=== PATIENT | female | born 1985 | race African-American/Black ===

== ENCOUNTER 2018-12-15 18:50 | Emergency (ER) | payer SELFPAY ==
[~2018-12-15] VITALS: Ht 170.2 cm; Wt 52.2 kg
[2018-12-15] MEDS ORDERED: ONDANSETRON PF 4 MG/2 ML VIAL. IV ONE ×2 (20:00→20:30)
[2018-12-15] MEDS ORDERED: FAMOTIDINE 20 MG/2 ML VIAL IVP ONE (20:00)
[2018-12-15 20:02] LABS: BASO % 0 % (0-3); EOS % 0 % (0-3); HEMATOCRIT 44.8 % (36.0-47.0); HEMOGLOBIN 15.1 g/dL (12.0-15.5); LYMPH # 0.7 x10^3/uL (1.0-4.8); LYMPH % 4 % (24-48); MEAN CORPUSCULAR HEMOGLOBIN 31 pg (25-35); MEAN CORPUSCULAR HGB CONC 34 g/dL (31-37); MEAN CORPUSCULAR VOLUME 91 fL (79-100); MONO # 0.4 x10^3/uL (0.0-1.1); MONO % 2 % (0-9); NEUT # 17.9 x10^3uL (1.8-7.7); NEUT % 94 % (31-73); PLATELET COUNT 284 x10^3/uL (140-400); RED CELL DISTRIBUTION WIDTH 13.3 % (11.5-14.5); WHITE BLOOD COUNT 19.1 x10^3/uL (4.0-11.0)
[2018-12-15 20:12] LABS: CALCIUM 9.8 mg/dL (8.5-10.1); CREATININE 1.2 mg/dL (0.6-1.0); POTASSIUM 3.5 mmol/L (3.5-5.1)
[2018-12-15] MEDS ORDERED: IV NORMAL SALINE 1000ML BAG 1,000 ML IV ONE ×2 (20:15→22:30)
[2018-12-15 20:19] LABS: ALBUMIN 4.5 g/dL (3.4-5.0); ALBUMIN/GLOBULIN RATIO 1.3 (1.0-1.7); TOTAL BILIRUBIN 1.4 mg/dL (0.2-1.0); TOTAL PROTEIN 8.1 g/dL (6.4-8.2)
[2018-12-15 20:29] LABS: % LYMPHS 1 % (24-48); % MONOS 1 % (0-10); % SEGS 98 % (35-66)
[2018-12-15 20:30] LABS: PLT ESTIMATE ADEQUATE (ADEQUATE); TOXIC GRANULATION SLIGHT
[2018-12-15] MEDS ORDERED: fentaNYL PF VIAL 100 MCG/2 ML VIAL IV ONE ×2 (20:30→22:30)
[2018-12-15] MEDS ORDERED: LIDO:MAALOX 1:1 20 ML SINGLE DOSE. SWSW ONE (20:30)
--- NOTE | 2018-12-15 21:49 | RAD ---
EXAM: Abdomen acute complete. HISTORY: Vomiting. COMPARISON: None. FINDINGS: A frontal view of the chest and frontal upright and supine views of the abdomen are obtained. There is no infiltrate, pleural effusion or pneumothorax. The heart is normal in size. There are circumscribed nodules overlying both mid and lower lungs due to nipple shadows. There is also a small nodule overlying the left upper lobe. There is a nonobstructive bowel gas pattern. There is no free air. IMPRESSION: 1. Nonobstructive bowel gas pattern. 2. Small nodule overlying the left upper lobe, possibly due to overlying artifact. Short-term radiographic follow-up can be performed to exclude a noncalcified nodule in this location. Electronically signed by: Ayla Duran MD (12/15/2018 9:46 PM) [facility]
--- NOTE | 2018-12-15 22:02 | EKG ---
[facility] [address] [place] [address] Test Date: 2018-12-15 Test Time: 19:30:36 Pat Name: FRED PRADO Department: Room: Gender: Female Track Superintendent: : 1985 Requested By: STAFF NON Order Number: [id number] Reading MD: Sharif Hayward Measurements Intervals [place] Rate: 53 P: 64 MO: 102 QRS: 77 QRSD: 90 T: 26 QT: 448 QTc: 426 Interpretive Statements SINUS RHYTHM INCOMPLETE RIGHT BUNDLE BRANCH BLOCK Electronically Signed On 01-12-2019 13:15:31 CDT by Sharif Hayward
--- NOTE | 2018-12-15 22:23 | PHYS DOC ---
Past Medical History Past Medical History: No Pertinent History (DAVID JOHNSON) Past Surgical History: No Surgical History (DAVID JOHNSON) Alcohol Use: Occasionally Drug Use: Marijuana (DAVID JOHNSON) Adult General Chief Complaint Chief Complaint: NAUSEA/VOMITING/DIARRHA HPI HPI Patient is a 33 year old F who was upset about a recent break up so went out with friends last night and drank a lot of alcohol. She states she doesn't normally drink too often so this was out of the ordinary for her and she woke up throwing up early this morning and has been vomiting all day long. She states she felt like she was starting to get dehydrated and her upper abd and chest hurt from so much vomiting. Her friend brings her to ER for fluids and medic ation. (DAVID JOHNSON) Review of Systems Review of Systems Constitutional: Denies fever or chills Respiratory: Denies cough or shortness of breath [] Cardiovascular: Reports chest pain GI: Denies bloody stools or diarrhea. Reports abdominal pain, nausea and vomiting. : Denies dysuria or hematuria [] Musculoskeletal: Denies back pain or joint pain [] Integument: Denies rash or skin lesions [] Neurologic: Denies focal weakness or sensory changes. Reports headache. All other systems were reviewed and found to be within normal limits, except as documented in this note. (DAVID JOHNSON) Current Medications Current Medications Current Medications Medications (Trade) Dose Ordered Sig/Yared Start Time Stop Time Status Last Admin Dose Admin Famotidine (Pepcid Vial) 20 mg 1X ONCE 12/15/18 20:00 12/15/18 20:01 DC 12/15/18 19:57 20 MG Fentanyl Citrate (Fentanyl 2ml Vial) 25 mcg 1X ONCE 12/15/18 22:30 12/15/18 22:31 DC 12/15/18 22:42 25 MCG Multi-Ingredient Mouthwash/Gargle (Gi Cocktail) 20 ml 1X ONCE 12/15/18 20:30 12/15/18 20:31 DC 12/15/18 20:38 20 ML Ondansetron HCl (Zofran) 4 mg 1X ONCE 12/15/18 20:30 12/15/18 20:31 DC 12/15/18 20:38 4 MG Sodium Chloride 1,000 ml @ 1,000 mls/hr 1X ONCE 12/15/18 22:30 12/15/18 23:29 DC 12/15/18 22:41 1,000 MLS/HR (YULIET LOZA DO) Allergies Allergies Allergies Coded Allergies Type Severity Reaction Last Updated Verified No Known Drug Allergies 11/15/15 No (YULIET LOZA DO) Physical Exam Physical Exam Constitutional: Well developed, well nourished, no acute distress, non-toxic appearance. Uncomfortable. HENT: Normocephalic, atraumatic, oropharynx moist. Neck: Normal range of motion, no tenderness, supple, no stridor. [] Cardiovascular: Heart rate regular rhythm, no murmur. Substernal chest pain. Lungs & Thorax: Bilateral breath sounds clear to auscultation [] Abdomen: Bowel sounds normal, soft, no masses. Upper abdominal pain tender to palpation. Skin: Warm, dry, no erythema, no rash. [] Back: No tenderness, no CVA tenderness. [] Extremities: No tenderness, no cyanosis, no clubbing, ROM intact, no edema. [] Neurologic: Alert and oriented X 3, normal motor function, normal sensory function, no focal deficits noted. [] Psychologic: Affect normal, judgement normal, mood normal. [] (DAVID JOHNSON) Current Patient Data Vital Signs Vital Signs Date Time Temp Pulse Resp B/P (MAP) Pulse Ox O2 Delivery O2 Flow Rate FiO2 12/15/18 23:32 53 152/77 (102) 100 Room Air 12/15/18 20:32 18 12/15/18 19:23 98.3 98.3 (YULIET LOZA DO) Lab Values Laboratory Tests Test 12/15/18 19:33 12/15/18 19:50 POC Urine HCG, Qualitative Hcg negative (Negative) White Blood Count 19.1 x10^3/uL (4.0-11.0) H Red Blood Count 4.90 x10^6/uL (3.50-5.40) Hemoglobin 15.1 g/dL (12.0-15.5) Hematocrit 44.8 % (36.0-47.0) Mean Corpuscular Volume 91 fL (79-100) Mean Corpuscular Hemoglobin 31 pg (25-35) Mean Corpuscular Hemoglobin Concent 34 g/dL (31-37) Red Cell Distribution Width 13.3 % (11.5-14.5) Platelet Count 284 x10^3/uL (140-400) Neutrophils (%) (Auto) 94 % (31-73) H Lymphocytes (%) (Auto) 4 % (24-48) L Monocytes (%) (Auto) 2 % (0-9) Eosinophils (%) (Auto) 0 % (0-3) Basophils (%) (Auto) 0 % (0-3) Neutrophils # (Auto) 17.9 x10^3uL (1.8-7.7) H Lymphocytes # (Auto) 0.7 x10^3/uL (1.0-4.8) L Monocytes # (Auto) 0.4 x10^3/uL (0.0-1.1) Eosinophils # (Auto) 0.0 x10^3/uL (0.0-0.7) Basophils # (Auto) 0.0 x10^3/uL (0.0-0.2) Segmented Neutrophils % 98 % (35-66) H Lymphocytes % 1 % (24-48) L Monocytes % 1 % (0-10) Toxic Granulation Slight Platelet Estimate Adequate (ADEQUATE) Maternal Serum HCG Beta Subunit < 1 mIU/mL (0-5) Sodium Level 140 mmol/L (136-145) Potassium Level 3.5 mmol/L (3.5-5.1) Chloride Level 102 mmol/L (98-107) Carbon Dioxide Level 21 mmol/L (21-32) Anion Gap 17 (6-14) H Blood Urea Nitrogen 20 mg/dL (7-20) Creatinine 1.2 mg/dL (0.6-1.0) H Estimated GFR (Cockcroft-Gault) 63.0 BUN/Creatinine Ratio 17 (6-20) Glucose Level 147 mg/dL (70-99) H Calcium Level 9.8 mg/dL (8.5-10.1) Total Bilirubin 1.4 mg/dL (0.2-1.0) H Aspartate Amino Transferase (AST) 38 U/L (15-37) H Alanine Aminotransferase (ALT) 50 U/L (14-59) Alkaline Phosphatase 49 U/L (46-116) Total Protein 8.1 g/dL (6.4-8.2) Albumin 4.5 g/dL (3.4-5.0) Albumin/Globulin Ratio 1.3 (1.0-1.7) Laboratory Tests 12/15/18 19:50 Laboratory Tests 12/15/18 19:50 (YULIET LOZA DO) EKG EKG [] (DAVID JOHNSON) Radiology/Procedures Radiology/Procedures AAS: no acute findings (DAVID JOHNSON) Course & Med Decision Making Course & Med Decision Making Pertinent Labs and Imaging studies reviewed. (See chart for details) Pt with leukocytosis but reports hours of vomiting prior to arrival, suspect stress response with no reported signs of fever, cough, dysuria, etc. Pt feeling much better after IV fluids, zofran, pepcid, GI Cocktail and Fentanyl. Encouraged pt to go home and rest and push fluids and electrolytes. Pt to return if symptoms worsen at anytime. (DAVID JOHNSON) Dragon Disclaimer Dragon Disclaimer This electronic medical record was generated, in whole or in part, using a voice recognition dictation system. (DAVID JOHNSON) Departure Departure Impression: Primary Impression: Vomiting Additional Impression: Acute alcoholic gastritis Disposition: 01 HOME, SELF-CARE Condition: IMPROVED Referrals: NO PCP (PCP) Patient Instructions: Esophagitis, Gastritis, Adult, [id number], Nausea and Vomiting, [id number] Additional Instructions: When you vomit multiple times, it can make the stomach and chest very irritated and sore. Avoid alcohol, push fluids and electrolytes (gatorade, powerade, etc). Rest and follow up with Primary Care Provider, Return to ER if symptoms worsen at anytime. Scripts Hydrocodone/Apap 5-325 (NORCO 5-325 TABLET) 1 Each Tablet 1-2 TAB PO Q4-6HRS PRN for PAIN, #6 TAB Prov: DAVID JOHNSON 12/15/18 Famotidine (PEPCID) 20 Mg Tablet 20 MG PO BID for 7 Days, #14 TAB Prov: DAVID JOHNSON 12/15/18 Promethazine Hcl (PROMETHAZINE HCL) 12.5 Mg Tablet 1 TAB PO Q6HRS PRN for NAUSEA/VOMITING, #12 TAB Prov: DAVID JOHNSON 12/15/18 Attending Signature Attending Signature I have reviewed the PA/[employer]UR[employer] ELECTRIC OPERATOR's note and plan of care. I was available for consultation as needed during the patient's visit in the emergency department. I agree with the clinical impression, plan, and disposition. (YULIET LOZA DO) Problem Qualifiers DAVID JOHNSON December 15, 2018 22:23 YULIET LOZA DO December 17, 2018 08:33
[2018-12-15] MEDS ORDERED: HYDR-3164 PO (22:43)
[2018-12-15] MEDS ORDERED: FAMO-63 PO (22:43)
[2018-12-15] MEDS ORDERED: PROM12.58 PO (22:43)
[2018-12-15 23:32] VITALS: BP 152/77
== END 2018-12-15 23:50 | disposition home or self-care (01) ==
LOC: ER 18:50
DX: K29.20 Alcoholic gastritis without bleeding (principal); F10.10 Alcohol abuse, uncomplicated; E86.0 Dehydration; R51 Headache; Y90.9 Presence of alcohol in blood, level not specified
CPT/HCPCS: 36415; 74022; 80053; 81025; 84702; 85007; 85025; 93005; 96361; 96374; 96375; 96376; 99285; J2405; J3010; J3490; J7030